=== PATIENT | female | born 2000 | race Caucasian/White ===

== ENCOUNTER 2022-06-06 19:37 | Emergency (ER) | payer OTHER ==
[~2022-06-06 19:37] MED LIST: CYCLOBENZAPRINE5 MG PO; IBUPROFEN800 MG PO; NORFLEX 100 MG100 MG PO; PREDNISONE 50 M50 MG PO; Voltaren Gel 1 % TOP
[2022-06-06] MEDS ORDERED: IBUPROFEN600 MG PO (20:37)
== END 2022-06-06 20:40 | disposition home or self-care (01) ==
LOC: ER1 19:37
DX: S60.221A Contusion of right hand, initial encounter (principal); F17.290 Nicotine dependence, other tobacco product, uncomplicated; Z88.0 Allergy status to penicillin; W22.8XXA Striking against or struck by other objects, initial encounter
CPT/HCPCS: 73130; 99283